=== PATIENT | female | born 1995 | race Caucasian/White ===

== ENCOUNTER 2017-08-28 15:55 | Emergency (ER) | payer MEDICAID, OTHER ==
--- NOTE | 2017-08-28 16:03 | CPEKG ---
Heart Rate: 66 RR Interval: 909 P-R Interval: 144 QRSD Interval: 84 QT Interval: 380 QTC Interval: 399 P Minter: 37 QRS Minter: 100 T Wave Minter: 63 EKG Severity - OTHERWISE NORMAL ECG - EKG Impression: SINUS RHYTHM EKG Impression: BORDERLINE RIGHT AXIS DEVIATION Electronically Signed By: Cecy Espinoza 28-Aug-2017 20:32:49
--- NOTE | 2017-08-28 16:27 | EDPHY ---
H & P Time Seen by Provider: 08/28/17 15:57 HPI/ROS: CHIEF COMPLAINT: Syncope HISTORY OF PRESENT ILLNESS: 21-year-old female presents after a syncopal episode. 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 She hit her head on the counter. She now has a mild headache and a bump on the back of her head. She is no longer dizzy. Last menstrual period was 1 week ago and regular. REVIEW OF SYSTEMS: Constitutional: No fever, no chills Eyes: No visual changes ENT: No sore throat Respiratory: No cough, no shortness of breath Cardiac: No chest pain Gastrointestinal: No nausea, no vomiting, no abdominal pain Genitourinary: no dysuria Musculoskeletal: No leg pain or swelling Skin: No rash Neurological: no numbness, no weakness Psychiatric: No depression Past Medical/Surgical History: Denies Social History: Student, no recent alcohol Smoking Status: Former smoker Physical Exam: General Appearance: Alert, pleasant, tearful Head: Tenderness and swelling on the occiput Eyes: Pupils equal and round, conjunctival injection ENT, Mouth: Mucous membranes moist Neck: Normal inspection, no midline tenderness, range of motion without pain Respiratory: Lungs are clear to auscultation Cardiovascular: Regular rate and rhythm Gastrointestinal: Abdomen is soft and nontender Neurological: Alert, oriented x3, cranial nerves II through XII intact, motor 5 /5, sensory intact to light touch Skin: Warm and dry Extremities: Normal inspection, no tenderness Psychiatric: Tearful, sad Constitutional: Initial Vital Signs Temperature (C) 36.9 C 08/28/17 15:58 Heart Rate 67 08/28/17 15:58 Respiratory Rate 18 08/28/17 15:58 Blood Pressure 138/93 H 08/28/17 15:58 O2 Sat (%) 100 08/28/17 15:58 O2 Delivery Mode Room Air Allergies/Adverse Reactions: amoxicillin Allergy (Verified 08/28/17 15:58) Penicillins Allergy (Verified 08/28/17 15:58) Medical Decision Making - Diagnostics EKG Interpretation: EKG interpreted by me reveals normal sinus rhythm, rate 66, no ST or T segment changes. ED Course/Re-evaluation: This patient presents after a syncopal episode after immunizations, consistent with vasovagal episode. Stat EKG reveals no evidence of dysrhythmia. Laboratory tests are normal. I feel that she is safe and stable for discharge home. She has a minor head injury, there is no indication for neuro imaging. Differential Diagnosis: Differential diagnosis includes though is not limited to cardiac dysrhythmia, CVA, TIA, GI bleed, sepsis, hypoglycemia. - Data Points Laboratory Results: 08/28/17 08/28/17 08/28/17 16:00 16:00 16:00 WBC Pending RBC Pending Hgb Pending Hct Pending MCV Pending MCH Pending MCHC Pending RDW Pending Plt Count Pending MPV Pending Neut % (Auto) Pending Lymph % (Auto) Pending [place] % (Auto) Pending Eos % (Auto) Pending Baso % (Auto) Pending Nucleat RBC Rel Count Pending Absolute Neuts (auto) Pending Absolute Lymphs (auto) Pending Absolute Monos (auto) Pending Absolute Eos (auto) Pending Absolute Basos (auto) Pending Absolute Nucleated RBC Pending Immature Gran % Pending Immature Gran # Pending Sodium Pending Potassium Pending Chloride Pending Carbon Dioxide Pending Anion Gap Pending BUN Pending Creatinine Pending Estimated GFR Pending Glucose Pending Calcium Pending Beta HCG, Qual Pending Departure - Departure Disposition: Home, Routine, Self-Care Clinical Impression: Syncope Qualifiers: Syncope type: vasovagal syncope Qualified Code(s): R55 - Syncope and collapse Head injury Qualifiers: Encounter type: initial encounter Qualified Code(s): S09.90XA - Unspecified injury of head, initial encounter Condition: Good Instructions: Syncope (ED), Head Injury (ED) Additional Instructions: Return for recurrent syncope or any concerns. You may take Tylenol for headache. Referrals: [facility] ,. [Edm Groups for Call Sched] - As per Instructions
[2017-08-28 16:33] LABS: PLATELET COUNT 274 10^3/uL (150-400)
[2017-08-28] MEDS ORDERED: ACETAMINOPHEN 325 MG TAB PO ONE (16:53)
[2017-08-28 17:13] VITALS: BP 128/77
== END 2017-08-28 17:14 | disposition home or self-care (01) ==
LOC: EDUNIT#
DX: S09.90XA Unspecified injury of head, initial encounter (principal); R55 Syncope and collapse; Z87.891 Personal history of nicotine dependence; W22.8XXA Striking against or struck by other objects, initial encounter; Y92.89 Other specified places as the place of occurrence of the external cause; Y99.8 Other external cause status; Y93.89 Activity, other specified